=== PATIENT | male | born 1965 | race Caucasian/White ===

== ENCOUNTER → 2020-04-26 10:57 | Outpatient (BNVA) | payer OTHER, SELFPAY | PROVIDERS: PCP Urology; Visit Provider Urology | DX: Z12.5 Encounter for screening for malignant neoplasm of prostate (principal); R97.20 Elevated prostate specific antigen [PSA]; N52.9 Male erectile dysfunction, unspecified | CPT/HCPCS: 81003; 84153 ==

== ENCOUNTER → 2020-08-03 15:54 | Outpatient (BNVA) | payer OTHER, SELFPAY | PROVIDERS: PCP Urology; Visit Provider Urology | DX: N40.0 Benign prostatic hyperplasia without lower urinary tract symptoms (principal); N39.9 Disorder of urinary system, unspecified; R97.20 Elevated prostate specific antigen [PSA]; N52.9 Male erectile dysfunction, unspecified | CPT/HCPCS: 81003; 84153 ==

== ENCOUNTER → 2020-11-04 11:16 | Outpatient (BNVA) | payer OTHER, SELFPAY | PROVIDERS: PCP Urology; Visit Provider Surgery | DX: Z01.812 Encounter for preprocedural laboratory examination (principal); Z20.822 Contact with and (suspected) exposure to COVID-19 | CPT/HCPCS: 87635 ==

== ENCOUNTER 2020-11-06 14:00 | Emergency (ER) | payer OTHER, SELFPAY ==
--- NOTE | 2020-11-06 15:25 | PM.SDS ---
Short Stay Summary Providers Date of Admit/Discharge: 11/06/20 Primary Care Provider: Ilan Santiago DO Chief Complaint: AFIB HPI History of Present Illness Moise Neri is a 55 year old male past medical history significant for longstanding hypertension, history of atrial fibrillation status post ablation on Rythmol and beta-cinthya on anticoagulation without any interruption went back into A. fib since yesterday he was not feeling well, his main complaint was fatigue shortness of breath and not able to sleep. This morning he was brought in for outpatient cardioversion. He was admitted as an outpatient for electrical cardioversion without ADA since patient is already on anticoagulation without interruption for many months. Patient was explained in detail all the risk and benefit and alternative for the procedure. He understood the risk for stroke and would like to proceed with it. Anesthesia was requested which examined the patient with me full consent was signed. With the help off 200 J of direct current electrical cardioversion under sync mode patient was defibrillated to sinus rhythm. EKG confirms sinus bradycardia heart rate into 48 to 50s. He was observed after the procedure without any complication. He is being discharged home on usual medicine including beta-cinthya and Rythmol. Advised to follow-up with Dr. Otero in 7 to 10 days. Home Meds/Allergies Home Medications and Allergies Home Medications Medication Instructions Recorded Confirmed Type Eliquis 5 mg PO BID 11/06/20 11/06/20 History allopurinol 100 mg PO DAILY 11/06/20 11/06/20 History magnesium 400 mg PO BID 11/06/20 11/06/20 History metoprolol succinate 100 mg PO DAILY 11/06/20 11/06/20 History omeprazole 40 mg PO DAILY 11/06/20 11/06/20 History propafenone 225 mg PO TID 11/06/20 11/06/20 History sildenafil 100 mg PO DAILY 11/06/20 11/06/20 History Allergies Allergy/AdvReac Type Severity Reaction Status Date / Time Penicillins Allergy ADR/ALGY-Pa Verified 11/06/20 14:13 lpitations Sulfa (Sulfonamide Allergy ADR-Nausea Verified 11/06/20 14:13 Antibiotics) Vitals/I&O/Wt Last Vital Signs Temp 98.3 F 11/06/20 14:13 Pulse 75 11/06/20 14:13 Resp 18 11/06/20 14:13 BP 123/86 11/06/20 14:13 Pulse Ox 96 11/06/20 14:13 Weight last 48 hrs Weight 240 lb Physical Exam Narrative: EXAM NARRATIVE: GENERAL: Patient is alert, awake and oriented x3. NECK: No jugular vein distension. HEENT: No cyanosis. No icterus. No pallor. HEART: Irregularly irregular S1 and S2. No murmur, rub or gallop. LUNGS: Clear to auscultate bilaterally. ABDOMEN: Soft, nontender and nondistended. Positive bowel sounds. No guarding, rebound or tenderness. CENTRAL NERVOUS SYSTEM: Grossly nonfocal. Hospital Course Hospital Course As above Discharge Plan Discharge Patient Disposition: Home Prescriptions: Continued magnesium 400 mg PO BID RF: 0 propafenone 225 mg PO TID RF: 0 metoprolol succinate 100 mg PO DAILY RF: 0 omeprazole 40 mg Capsule,Delayed Release(Dr/Ec) 40 mg PO DAILY RF: 0 sildenafil 100 mg PO DAILY RF: 0 allopurinol 100 mg PO DAILY RF: 0 Eliquis 5 mg PO BID RF: 0 Discharge Orders: Discharge ED (Routine); Ordered 11/06/20 Ordered By: Daya Otero Discharge Diet: Cardiac and Low Salt Discharge Activity: Increase activity as tolerated Activity Restrictions/Additional Instructions: Follow-up with Dr. Otero in 2 weeks Stand Alone Forms: Work/School Release Attestations Medical Necessity Statement*: Patient require continuation of hospitalization with above defined care. Time Spent in Patient Care*: other Quality Metrics Clinical Quality Measures: During this hospital stay, did patient experience: None Coding Level of Care Code New Pt Acute Residential Nurse for Chg Fwd Patient Type New Medical Decision Making Moderate Complexity
--- NOTE | 2020-11-06 15:26 | W.PM.OPSUD ---
Surgery/Procedure H&P Update DATE OF PROCEDURE: November 06, 2020 DATE H&P PERFORMED: 11/06/20 PREOP DIAGNOSIS: Atrial fibrillation PRIMARY INDICATION FOR PROCEDURE: Atrial fibrillation with cardioversion plan under anesthesia. PLANNED PROCEDURE: Electrical cardioversion under anesthesia. Please see anesthesia note for sedation
--- NOTE | 2020-11-06 16:47 | PM.PROC ---
Procedure Note: Date of procedure: 11/06/20 Pre-procedure diagnosis: Atrial fibrillation Other Information: After explaining all risk benefit and alternative for the procedure in detail. Propofol was administered by anesthesia please see anesthesia note. After confirming deep sedation. Synchronized 200 biphasic joules shock was delivered. Patient converted back to sinus rhythm. Patient recovered from the procedure without any complication. He is being discharged home. We will continue home meds without any change or interruption. Please note that patient is on anticoagulation without any interruption for many months. 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
== END 2020-11-06 15:35 | disposition home or self-care (01) ==
LOC: ER 15:32
PROVIDERS: PCP Family Medicine
DX: I48.91 Unspecified atrial fibrillation (principal); Z79.01 Long term (current) use of anticoagulants
CPT/HCPCS: 92960; G0378; G0379; J2704

== ENCOUNTER → 2021-01-30 09:02 | Outpatient (BNVA) | payer OTHER, SELFPAY | PROVIDERS: Visit Provider Urology | DX: R97.20 Elevated prostate specific antigen [PSA] (principal) | CPT/HCPCS: 84153 ==

== ENCOUNTER → 2021-03-13 08:38 | Outpatient (BNVA) | payer OTHER, SELFPAY | PROVIDERS: PCP Family Medicine; Visit Provider Surgery | DX: Z20.822 Contact with and (suspected) exposure to COVID-19 (principal); Z11.52 Encounter for screening for COVID-19 | CPT/HCPCS: 87635 ==

== ENCOUNTER 2021-03-16 08:04 | Day surgery (SDC) | payer OTHER, SELFPAY ==
[2021-03-13 13:08] VITALS: BMI 34.4
--- NOTE | 2021-03-16 08:25 | ANES.PREANE2 ---
Pre-Anesthetic Assessment Pre-Anesthetic Assessment: Height/Weight: Height 1.78 m Weight 108.862 kg Preop Diagnosis: diagnostic Proposed Procedure: Operation Date: 03/16/21 09:30 Proposed Procedures p Colonoscopy 93387 Z12.11(Not Applicable) - Raheem Langston MD Was Beta Erik taken within 24 hours: Yes Was Clonidine taken within 24 hours: N/A Social: Social History: No tobacco Exam: Pre-Anes Outpt Exam: alert, oriented x 3, clear to auscultation bilaterally and regular rate & rhythm Airway: Submandibular: WNL Cervical ROM: WNL MP: 2 CV/HEM: CV/HEM: Arrythmia Comments: AFib s/p ablations & cardioversions. On Eliquis, but not for several days. GI: GI: GERD Anesthetic Plan: ASA status: 2 Anesthesia: Anesthesia Evaluation and MAC Risk of > 500 ml blood loss (7ml/kg in children): No PFSH Anesthesia PFSH: Medical History Afib Elevated PSA Erectile dysfunction Surgical History Hx of sinus surgery Family History Father CAD (coronary artery disease) Social History Alcohol intake: never Adopted: No Caregiver/support person: No Lives independently: No Marital status: Current occupational status: employed Data Anesthesia Cardiac Studies: No Data to Display
[2021-03-16 08:39] VITALS: RESP 18
[2021-03-16] MEDS: sodium chloride 0.9% 1,000 ML 30 ML IV (08:53)
--- NOTE | 2021-03-16 09:51 | P.HP_ITS ---
Same Day Surgery H&P Indication for Procedure/HPI DATE OF PROCEDURE: March 16, 2021 CHIEF COMPLAINT/INDICATIONFOR SURGICAL PROCEDURE: screening colonoscopy PREOP DIAGNOSIS: diagnostic PLANNED PROCEDRUE: Operation Date: 03/16/21 09:30 Proposed Procedures p Colonoscopy 96892 Z12.11(Not Applicable) - Raheem Langston MD Medications/Allergies* Home Medications Medication Instructions Recorded Confirmed Type allopurinol 100 mg tablet 100 mg PO DAILY 04/26/20 03/13/21 History apixaban 5 mg tablet 5 mg PO BID 04/26/20 03/13/21 History magnesium 250 mg tablet 500 mg PO DAILY tab 04/26/20 03/13/21 History propafenone 225 mg tablet 225 mg PO TID tab 04/26/20 03/13/21 History omeprazole 40 mg PO DAILY 11/06/20 03/13/21 History sildenafil 100 mg PO DAILY PRN 12/14/20 03/13/21 History metoprolol succinate 100 mg 100 mg PO DAILY tab 02/01/21 03/13/21 History tablet,extended release 24 hr Allergies/Adverse Reactions Allergy/AdvReac Type Severity Reaction Status Date / Time Penicillins Allergy ADR/ALGY-Pa Verified 03/13/21 13:04 lpitations Sulfa (Sulfonamide Allergy ADR-Nausea Verified 03/13/21 13:04 Antibiotics) Current Medications: Generic Name Dose Route Start Last Admin Trade Name Freq PRN Reason Stop Dose Admin Sodium Chloride 1,000 mls @ 30 mls/hr 03/16/21 08:30 03/16/21 08:53 Sodium Chloride 0.9% IV 03/17/21 08:29 30 mls/hr .Q24H SOPHIE Administration Pertinent History/Comorbid Conditions* Medical History (Updated 12/18/20 @ 16:24 by Daya Otero MD) Afib Elevated PSA Erectile dysfunction Surgical History (Updated 12/02/20 @ 13:57 by Marylin Ward) Hx of sinus surgery Family History (Updated 04/26/20 @ 08:41 by Shavonne Weir LPN) CAD (coronary artery disease) Father Social History Alcohol intake: never Adopted: No Caregiver/support person: No Lives independently: No Marital status: Current occupational status: employed Pertinent Exam Findings alert, oriented x 3 and regular rate & rhythm Recommendations Surgery/Procedure today Coding Level of Care Code Acute Airborne Operations for Chg Fwd
[2021-03-16 10:23] VITALS: BP 134/86; PULSE 52; RESP 18; TEMP 36.5; O2SAT 95
[2021-03-16 10:38] VITALS: BP 105/74; PULSE 51; RESP 18; O2SAT 95
--- NOTE | 2021-03-16 15:27 | ANE.PACU2 ---
Inpatient post-anesthesia follow up: Airway intact: Yes Vital signs: Temperature 97.7 F Pulse Rate 51 Respiratory Rate 18 Blood Pressure 105/74 Pulse Oximetry 95 Oxygen Delivery Me thod Room Air Oxygen Flow Rate Fraction of Inspir ed Oxygen Hydration adequate: Yes Nausea and vomiting: No Pain level: 1 Mental status: Baseline
== END 2021-03-16 10:54 | disposition home or self-care (01) ==
PROVIDERS: PCP Family Medicine; Visit Provider Surgery
PROC: 0DJD8ZZ Inspection of Lower Intestinal Tract, Via Natural or Artificial Opening Endoscopic (ICD-10-PCS; CPT 45378; principal; 2021-03-16 09:30)
DX: Z12.11 Encounter for screening for malignant neoplasm of colon (principal); K57.30 Diverticulosis of large intestine without perforation or abscess without bleeding; Z79.01 Long term (current) use of anticoagulants; I48.91 Unspecified atrial fibrillation; K21.9 Gastro-esophageal reflux disease without esophagitis
CPT/HCPCS: 45378; 96360; J2704; J3010; J7030

== ENCOUNTER → 2021-06-17 11:05 | Outpatient (BNVA) | payer OTHER, SELFPAY | PROVIDERS: PCP Family Medicine; Visit Provider Family Medicine | DX: Z01.812 Encounter for preprocedural laboratory examination (principal); Z20.822 Contact with and (suspected) exposure to COVID-19 | CPT/HCPCS: 87635 ==